=== PATIENT | female | born 1985 | race Caucasian/White ===

== ENCOUNTER 2016-05-13 18:46 | Emergency (ER) | payer SELFPAY ==
[2016-05-13 18:47] VITALS: BMI 35.4
[2016-05-13 19:04] VITALS: BP 145/99; PULSE 118; TEMP 98.1
[2016-05-13] MEDS ORDERED: METHYLPREDNISOLONE 125 MG/2 ML VIAL IV ONE (21:32)
[2016-05-13] MEDS ORDERED: DIPHENHYDRAMINE 50 MG/ML VIAL IV ONE (21:32)
[2016-05-13] MEDS ORDERED: NS 1,000 ML IV ONE (21:32)
[2016-05-13] MEDS ORDERED: Famotidine 20 mg/50 ml RTU 20 MG/50 ML IVB IV ONE (21:33)
[2016-05-13] MEDS ORDERED: MORPHINE 4 MG/ML INJECTION IV ONE (22:17)
[2016-05-13 22:26] LABS: LEUKOCYTES/URINE TRACE (NEGATIVE); NITRITE/URINE NEG (NEGATIVE); URINE OCCULT BLOOD NEG (NEG/TRACE)
== END 2016-05-13 22:40 | disposition left against medical advice (07) ==
LOC: ED 18:46
DX: M79.662 Pain in left lower leg (principal); M79.661 Pain in right lower leg; R21 Rash and other nonspecific skin eruption; Z53.21 Procedure and treatment not carried out due to patient leaving prior to being seen by health care provider
CPT/HCPCS: 81001; 85025; 93005; 99281; 99283; J1200; J2270; J2930; S0028